=== PATIENT | male | born 1945 | race Caucasian/White ===

== ENCOUNTER 2022-04-12 08:50 | Day surgery (SDC) | payer MEDICARE, BC ==
[~2022-04-12 08:50] MED LIST: Bupivacaine 0.5%/EPINEPHrine 1:200,000 50 ML MDV ONE
[2022-04-12] MEDS ORDERED: Propofol 200 MG/20 ML SDV ONE (09:24)
[2022-04-12] MEDS ORDERED: fentaNYL 100 MCG/2 ML SDV ONE (09:24)
[2022-04-12] MEDS ORDERED: Midazolam 1 MG/ML 2 ML SDV ONE (09:24)
[2022-04-12] MEDS ORDERED: Acetaminophen 500 MG Tab PO ONE (09:45)
[2022-04-12] MEDS ORDERED: Lactated Ringers 1,000 ML IV SCH (10:00)
[2022-04-12] MEDS ORDERED: Bupivacaine 0.5%/EPINEPHrine 1:200,000 50 ML MDV INJECT ONE (13:29)
[2022-04-12] MEDS ORDERED: Bacitracin Oint 1 GM U/D Packet ONE (13:59)
== END 2022-04-12 15:15 | disposition home or self-care (01) ==
LOC: JP.SDS 08:50
PROVIDERS: ATTEND Student in an Organized Health Care Education/Training Program
DX: C44.619 Basal cell carcinoma of skin of left upper limb, including shoulder (principal); I10 Essential (primary) hypertension; F11.90 Opioid use, unspecified, uncomplicated; Z79.899 Other long term (current) drug therapy; Z88.0 Allergy status to penicillin; Z68.35 Body mass index [BMI] 35.0-35.9, adult; Z88.8 Allergy status to other drugs, medicaments and biological substances
CPT/HCPCS: 11603; 88305; A9270; J2250; J2704; J3010; J3490; J7120